=== PATIENT | male | born 1975 | race Caucasian/White ===

== ENCOUNTER 2019-12-11 07:17 | Day surgery (SDC) | payer MEDICARE, MEDICAID ==
[~2019-12-11] VITALS: Ht 175.3 cm; Wt 108.9 kg
[~2019-12-11 07:17] MED LIST: ACET1TAB55 PO; AMLO5TAB6 PO; BACITRACIN OINT 30GM As Ordered ONE; BUSP15TA47 PO; GABA600T4 PO; LR 1,000 ML IV SCH; METO1TAB7 PO; MOBI4TAB PO; NICO2LOZ29; OMEP1CAP73 PO; SERT-138 PO; ceFAZolin SOD 2 GM in IV 1 EA IV ONE
[2019-12-11] MEDS ORDERED: MIDAZOLAM INJ 2 MG/2 ML VIAL (J2250) As Ordered ONE (07:58)
[2019-12-11] MEDS ORDERED: ONDANSETRON 4MG/2ML VIAL (J2405) As Ordered ONE (07:58)
[2019-12-11] MEDS ORDERED: propofoL 200 MG/20 ML VIAL As Ordered ONE ×2 (07:58→10:16)
[2019-12-11] MEDS ORDERED: fentaNYL 100 MCG/2 ML INJECTION (J3010) As Ordered ONE (07:58)
[2019-12-11] MEDS ORDERED: LIDOCAINE 2% INJ 100 MG/5 ML SDV (FOR ANES.) As Ordered ONE (07:58)
[2019-12-11] MEDS ORDERED: ACETAMINOPHEN 1000MG 100ML IV BTL (OFIRMEV) (J0131 PER 10MG) As Ordered ONE (10:13)
[2019-12-11] MEDS ORDERED: LIDOCAINE 5% OINT 30 GM As Ordered ONE (10:16)
[2019-12-11] MEDS ORDERED: KETOROLAC 60 MG/2 ML VIAL (J1885) As Ordered ONE (10:18)
[2019-12-11] MEDS ORDERED: LIDOCAINE 1% MDV 20ML VIAL As Ordered ONE (10:32)
[2019-12-11] MEDS ORDERED: PERCOCET 5MG/325MG TAB PO PRN (11:00)
[2019-12-11] MEDS ORDERED: IBUPROFEN 600 MG TAB PO PRN (11:00)
[2019-12-11] MEDS ORDERED: LR 1,000 ML IV SCH ×2 (11:00)
[2019-12-11] MEDS ORDERED: ONDANSETRON 4MG/2ML VIAL (J2405) IV PRN (11:00)
[2019-12-11] MEDS ORDERED: fentaNYL 100 MCG/2 ML INJECTION (J3010) IV PRN (11:00)
[2019-12-11] MEDS ORDERED: ETOMIDATE INJ 20MG/10ML VIAL As Ordered ONE (11:26)
[2019-12-11 11:30] VITALS: BP 128/87
--- NOTE | 2019-12-11 20:15 | RO ---
DATE OF PROCEDURE: 12/11/2019 PREPROCEDURE DIAGNOSIS: Redundant foreskin. POSTPROCEDURE DIAGNOSIS: Redundant foreskin. PROCEDURE: Circumcision. SURGEON: Danilo Zaragoza MD BR[employer] LOADER AND HANDLE ATTACHER: None ANESTHESIA: General. INDICATION FOR OPERATION: This is a 44-year-old paraplegic who is in for circumcision for health-related reasons and hygiene. DESCRIPTION OF PROCEDURE: The patient was placed on the table in the supine position and given general anesthesia. He was then prepped with Betadine paint and draped in a sterile manner. A time-out was then performed. The foreskin was then clamped on the lateral edges, and a dorsal and ventral midline clamp and incision was made. The redundant foreskin was then excised with curved Katz scissors. Hemostasis was achieved with cauterization and #2-0 chromic ties. The skin edges were then approximated with interrupted #2-0 chromic sutures. The penis was then anesthetized with 1% lidocaine injection and 5% lidocaine ointment. A dry sterile dressing was applied, and the patient was awakened and sent to the recovery room having tolerated the procedure well. SPECIMEN: Foreskin EBL: Less than 10 cc DRAINS: None MTDD
== END 2019-12-11 12:09 | disposition home or self-care (01) ==
LOC: M SDC 07:17
PROVIDERS: ATTEND Urology
DX: N47.1 Phimosis (principal); I10 Essential (primary) hypertension; G82.20 Paraplegia, unspecified; F32.9 Major depressive disorder, single episode, unspecified; F41.9 Anxiety disorder, unspecified; K21.9 Gastro-esophageal reflux disease without esophagitis; F17.220 Nicotine dependence, chewing tobacco, uncomplicated; Z79.899 Other long term (current) drug therapy
CPT/HCPCS: 54161; 88304; J0131; J0690; J1885; J2250; J2405; J3010